=== PATIENT | female | born 1990 | race Caucasian/White ===

== ENCOUNTER 2020-09-26 04:40 | Inpatient (IN) | payer OTHER, SELFPAY ==
[2017-03-18 07:21] VITALS: BMI 32.6
[2020-09-26] VITALS (53 sets, daily range): BP systolic 89–142; BP diastolic 51–78; PULSE 48–139; RESP 16; TEMP 35.9–37.1; O2SAT 89–100; BMI 30.8
[2020-09-26 05:16] LABS: Absolute Lymphocyte Count 1.83 X10^3/uL (0.83-4.51); Absolute Neutrophil Count 6.6 X10^3/uL (2.0-7.7); Basophil# 0.03 X10^3/uL; Basophil% 0.3 % (0-1); Eosinophil# 0.13 X10^3/uL; Eosinophils% 1.4 % (0-5); Hematocrit 37.1 % (37-47); Hemoglobin 12.5 g/dL (12.0-15.0); Lymphocyte # 1.83 X10^3/ul (4.0); Mean Corp Hgb Conc 33.7 g/dL (32-36); Mean Corpuscular Hgb 32.4 pg (27.0-32.0); Mean Corpuscular Volume 96.1 fL (81-99); Mean Platelet Vol. 9.6 fl (6.2-12.0); Monocyte# 0.47 X10^3/uL; Monocyte% 5.1 % (0-10); NRBC Flagged by Analyzer 0 % (0-5); Neutrophil # 6.63 X10^3/uL (2.7-7.7); Neutrophil % 72.8 % (47-70); Platelet Count 229 K/mm3 (150-450); RBC Distribution Width CV 12.8 % (11.6-14.6); RBC Distribution Width SD 45.2 fl (35.1-43.9); Red Blood Count 3.86 M/mm3 (4.2-5.4); White Blood Count 9.1 K/mm3 (4.4-11.0)
[2020-09-26] MEDS: Lactated Ringers 500 ML 999 ML IV ×2 (05:18→06:13)
[2020-09-26] MEDS: Lactated Ringers 1,000 ML 200 ML IV ×2 (05:22→08:54)
[2020-09-26 05:44] LABS: ROM Internal Control Test YES-OK TO RESULT pt. (Internal QC)
[2020-09-26 05:45] LABS: ROM Patient Test POSITIVE (Negative)
[2020-09-26] MEDS: fentaNYL-bupivacaine (epidural) 100 ML BAG EPIDURAL (06:08)
[2020-09-26] MEDS: Ondansetron 4 MG/2 ML Vial IV (07:20)
--- NOTE | 2020-09-26 08:29 | PCM.HP.OB ---
- Problem List (1) Active labor at term Status: Acute (2) Positive GBS test Status: Acute (3) COVID-19 affecting in second trimester Status: Acute History Date of Admission: 03/18/17 Final KRISTIE: 09/25/20 Final KRISTIE Source: US <20 weeks Gestational age: 40 Weeks and 1 Days History of this : This is a 30 year-old, G [3], P [2001], at 40 weeks gestational age. Allergies No Known Allergies Allergy (Verified 09/26/20 04:54) Home Medications: Home Medications Vits [Prenatabs FA ] 1 tablet PO DAILY 03/18/17 Ranitidine [Zantac] 150 mg PO PRN PRN 03/18/17 Smoking Status: Never smoker Alcohol: None NST - FHR Rate Baby A Baseline: 130 Variability:: Moderate Accelerations:: 15 x 15 Decelerations:: None FHR Category:: Category I Uterine Activity:: every 3-4 minutes History Past Pregnancies: Past Pregnancies Delivery Date Name GA/ Weeks Outcome Route Wt Sex Labor Length Anesthesia Delivery Location Provider FOB Labs: Mom's Problem List Problem Status Onset Code Active labor at term Acute Positive GBS test Acute B95.1 COVID-19 affecting in second trimester Acute O98.512, U07.1 Mom's Labs & Results 09/26/20 09/26/20 09/26/20 05:05 05:05 05:28 WBC 9.1 RBC 3.86 L Hgb 12.5 Hct 37.1 MCV 96.1 MCH 32.4 H MCHC 33.7 RDW Std Deviation 45.2 H RDW Coeff of Kailyn 12.8 Plt Count 229 MPV 9.6 Immature Gran % (Auto) 0.400 Neut % (Auto) 72.8 H Lymph % (Auto) 20.0 Lares % (Auto) 5.1 Eos % (Auto) 1.4 Baso % (Auto) 0.3 Absolute Neuts (auto) 6.6 Absolute Lymphs (auto) 1.83 Nucleated RBC % 0 Vag Amniotic Fld Detect POSITIVE H Blood Type A POSITIVE Antibody Screen NEGATIVE Course Did the patient receive Yes care? Labs Blood Type: A RH: POSITIVE RPR/VDRL/Syphilis Nonreactive Rubella status Immune HbSAg Negative Date Done: 02/21/20 Chlamydia Negative Gonorrhea Negative HIV/AIDS Non-Reactive Group B Strep: Positive Current Obstetrical History Gestational Diabetes No Incompetent Cervix No Infertility No IUGR No Macrosomia No Hypertension/Pre-eclampsia No Placenta Previa/Abruption No PTL/PROM No Uterine anomaly No Oligohydramnios No Polyhydramnios No Multiple gestation No Past Medical History Asthma No Diabetes No Hypertension No Heart disease No Mitral valve prolapse No Neurologic/Seizure disorder/ No Migraines Kidney disease No Liver disease No Varicosities No Clotting disorders/Hx of DVT No Thyroid Dysfunction No Other medical diseases Yes: anemia Psychiatric disorders No Major trauma No Abnormal PAP smear No Sleep apnea No Mammogram in the last 2 years No Social History Marital Status: Alleged father Rick Dumont Hx Smoking No Smoking Status Never smoker Expected Delivery Method: Spontaneous Vaginal Review of Systems Constitutional: Denies: Chills, Fever, Weight Change HEENT: Denies: Head Aches, Sinus Congestion, Sinus Drainage Cardiovascular: Denies: Chest Pain, Palpitations Respiratory: Denies: Cough, Shortness of breath at rest, Sputum production Gastrointestinal: Denies: Abdominal Pain, Nausea, Vomiting Genitourinary: Denies: Dysuria Musculoskeletal: Denies: Joint Pain, Joint Tenderness Skin: Denies: Rash, Wounds Neurological: Denies: Numbness, Tingling, Focal weakness Psychiatric: Denies: Anxiety, Depression, Homicidal Ideations, Suicidal Ideations Hematologic/ Lymphatic: Denies: Easy Bruising, Easy Bleeding Physical Exam Vitals: Vital Signs Temp Pulse BP Pulse Ox 97.2 F L 57 L 91/54 L 100 09/26/20 07:16 09/26/20 08:11 09/26/20 08:11 09/26/20 07:08 General: Alert, Oriented x3, No apparent distress HEENT: Atraumatic, Normocephalic. Negative for: Thyromegaly, Lymphadenopathy Cardiovascular: Regular rate, Regular Rhythm, No murmurs Lungs: Clear to auscultation, Normal air movement, No rhonchi, No wheeze Abdomen: Bowel Sounds Present, Soft, Gravid Extremities:: No edema Neurological: Deep Tendon Reflexes 2+/4 and Symmetrical MEDICAL RADIATION THERAPIST: Normal external genitalia Estimated gestational size: Appropriate for gestational size Presentation: Cephalic Cervix Dilation (cm): 7 - per nursing exam. Epidural Station: -1 Effacement (%): 90 Assessment/Plan All Active Problems Active labor at term (Acute) Positive GBS test (Acute) COVID-19 affecting in second trimester (Acute) This is a 30 year-old, G [3], P [2001], at 40 weeks gestational age. A:Active labor at term Category 1 FHT GBS positive P: 1) Admit to labor and delivery 2) Routine labs 3) Penicillin G for GBS prophylaxis 4) Epidural for pain management 5) notified of patient in labor and collaborative physician
[2020-09-26] MEDS: Oxytocin 30 units/NS 500 ml 30 UNITS/500 ML IV.SOLN IV (09:38)
[2020-09-26] MEDS: Oxytocin 30 units/NS 500 ml 30 UNITS/500 ML IV.SOLN 334 UNITS IV (10:55)
--- NOTE | 2020-09-26 11:16 | PCM.OPRPT ---
Problem List (1) Active labor at term Status: Acute (2) Positive GBS test Status: Acute (3) COVID-19 affecting in second trimester Status: Acute (4) Vaginal delivery Status: Acute Vaginal Delivery Maternal Presentation: Active Labor Amniotic Membrane Rupture Type: Artificial Amniotic Fluid Description: Clear Final KRISTIE: 09/25/20 Final KRISTIE Source: US <20 weeks Gestational age: 40 Weeks and 1 Days Date of Procedure: 09/26/20 Pre-Operative Diagnosis: Active labor Post-Operative Diagnosis: Surgery/ Procedure Performed: Spontaneous Vaginal Delivery Type of Anesthesia: Epidural Description of Procedure: Progressed to complete with strong urge to push. of viable male over 1st degree vaginal laceration. APGARS 8,9. head delivered with body forthcoming. Loose cord around the neck x 1, delivered though. Infant placed on maternal abdomen, strong cry, mouth and nares suctioned for secretions. Pitocin started for active 3rd stage management. Placenta delivered with maternal effort, intact, 3 vessel cord via dago. Perineum inspected and revealed very small laceration inside introitus that was not hemostatic, 3.0 vicryl rapide with one figure eight stitch. Fundus firm and hemostasis achieved. Vaginal sweep completed by me, sponge and instrument count correct. Mom and baby stable, family bonding well. Planning to breastfeed. TRAVON Silverman 3 present and assisted with delivery. notified of patient delivery. Presentation: Vertex Placental Delivery Description: Spontaneous Placenta Disposition: [facility] Cord Vessel Description: 3 Vessels Cord Entanglement: Around neck x 1, loose Estimated Blood Loss: 100 ml Infant A gender: Male (1 minute): 8 (5 minute): 9 Episiotomy Description: None Laceration: 1st degree - vaginal laceration. 1 figure 8 stitch for hemostasis. Medications given after delivery: IV Pitocin Complications: None
[2020-09-26] MEDS: Acetaminophen 500 MG Tablet 1000 MG PO (12:00)
[2020-09-26] MEDS: 0.9% Saline Lock 10 ML Syringe IV (13:27)
[2020-09-26] MEDS: Ibuprofen 600 MG Tablet PO (19:36)
[2020-09-27 04:19] VITALS: BP 85/53; BP 89/62; PULSE 65; RESP 16; TEMP 36.4
[2020-09-27 04:36] LABS: Hematocrit 34.8 % (37-47); Hemoglobin 11.7 g/dL (12.0-15.0); Mean Corp Hgb Conc 33.6 g/dL (32-36); Mean Corpuscular Hgb 32.9 pg (27.0-32.0); Mean Corpuscular Volume 97.8 fL (81-99); Mean Platelet Vol. 9.6 fl (6.2-12.0); Platelet Count 200 K/mm3 (150-450); RBC Distribution Width CV 12.9 % (11.6-14.6); RBC Distribution Width SD 46.6 fl (35.1-43.9); Red Blood Count 3.56 M/mm3 (4.2-5.4); White Blood Count 9.4 K/mm3 (4.4-11.0)
--- NOTE | 2020-09-27 08:05 | PCM.PN.OB ---
Patient Problems: Active and Suspected Problems Active labor at term (Acute) Positive GBS test (Acute) COVID-19 affecting in second trimester (Acute) Vaginal delivery (Acute) Subjective: pt seen at bedside, doing well. pt reports good pain control. lochia mild. Breast feeding. - Physical Exam Vitals/I&O's: Vital Signs Temp Pulse Resp BP Pulse Ox 97.6 F L 65 16 85/53 L 96 09/27/20 04:19 09/27/20 04:19 09/27/20 04:19 09/27/20 04:19 09/26/20 23:10 Oxygen Delivery Method Room Air Weight: 84.096 kg Body Mass Index (BMI) 30.8 Intake and Output for Last 24 Hours 09/25/20 09/26/20 09/27/20 23:59 23:59 23:59 Intake Total 3767.57 / 3767.57 Output Total 1800 / 1800 Balance 1967.57 / 1967.57 General: Alert, Oriented x3 Abdomen: Soft, Non Tender, Non-Distended, - - fundus firm Extremities: No Calf Tenderness Laboratory Results 09/27/20 04:25: WBC 9.4, RBC 3.56 L, Hgb 11.7 L, Hct 34.8 L, MCV 97.8, MCH 32.9 H, MCHC 33.6, RDW Std Deviation 46.6 H, RDW Coeff of Kailyn 12.9, Plt Count 200, MPV 9.6 Current Medications Acetaminophen (Acetaminophen 500 Mg Tablet) 1,000 mg PO Q8H PRN PRN PRN Reason: Pain Score 1-10 Last Admin: 09/26/20 12:00 Dose: 1,000 mg Documented by: Bisacodyl (Bisacodyl 10 Mg Suppository) 10 mg RC UD PRN PRN Reason: If no BM Dibucaine (Dibucaine 30 Gm Tube) 1 applic TOPICAL TID PRN PRN; Protocol PRN Reason: Discomfort Hydrocortisone (Hydrocortisone 2.5% Crm) 1 applic TOPICAL TID PRN PRN; Protocol PRN Reason: Discomfort Ibuprofen (Ibuprofen 600 Mg Tablet) 600 mg PO Q6H PRN PRN PRN Reason: Pain Score 1-10 Last Admin: 09/26/20 19:36 Dose: 600 mg Documented by: Methylergonovine Maleate (Methylergonovine 0.2 Mg/Ml Ampul) 0.2 mg IM X1 PRN PRN Reason: Excess bleeding/uterine atony Ondansetron HCl (Ondansetron 4 Mg/2 Ml Vial) 4 mg IV Q4H PRN PRN PRN Reason: Nausea Senna/Docusate Sodium (Senna/Docusate Sodium 1 Tablet) 1 - 2 tablet PO DAILY PRN PRN PRN Reason: Constipation Simethicone (Simethicone 80 Mg Tablet) 80 mg PO PCHS PRN PRN Reason: Indigestion/Stomach pain Sodium Chloride (0.9% Saline Lock 10 Ml Syringe) 5 - 15 ml IV UD PRN PRN Reason: SALINE FLUSH Last Admin: 09/26/20 13:27 Dose: 10 ml Documented by: Medical Necessity - Tobacco Use Smoking Status: Never smoker Assessment/Plan All Active Problems Active labor at term (Acute) Positive GBS test (Acute) COVID-19 affecting in second trimester (Acute) Vaginal delivery (Acute) PPD#1, doing well routine care pain mgmt dc home
--- NOTE | 2020-09-27 08:07 | DCINST_ITS ---
Discharge Diet: No Restrictions Discharge Activity: Return to Normal Activity, May not drive while taking narcotic pain medications., May Shower May resume sexual activity in: 4-6 weeks Additional Activity Instructions:: Nothing in the vagina for 4-6 weeks. You may return to work/school in 6 weeks. Call your doctor if your incision/area has: Continuous Slow Oozing, Sudden Increased Bleeding, Increased Pain/ Swelling, Increased Redness, Foul Smelling Discharge Additional Instructions: If you experience any of the following, contact your healthcare provider. * Bleeding that soaks a pad every hour for 2 hours * Fever 100.4 or higher * Unrelieved incision or abdominal pain * Swelling, redness, discharge or bleeding from your incision or episiotomy site * Your incision begins to separate * Problems urinating (including inability to urinate or burning while urinating). * Visual changes * Severe headache * Flu-like symptoms * Pain or redness in one of both of your breasts * Pain, warmth, tenderness or swelling in your legs, especially the calf area * Frequent nausea and vomiting * Symptoms of depression or anxiety If you experience any of the following, call 911 or go to the nearest Emergency Room. * Chest pain * Problems breathing * Seizure activity * Partial or complete paralysis of a body part, slurred speech, weakness or drooping of the face, or a sudden inability to walk or hold your balance Allergies/Adverse Reactions: Allergies No Known Allergies Allergy (Verified 09/26/20 04:54) Medications to take at Discharge Vits [Prenatabs FA ] 1 tablet PO DAILY 03/18/17 Ranitidine [Zantac] 150 mg PO PRN PRN 03/18/17 Ibuprofen [Motrin] 600 mg PO Q6H PRN PRN #30 tablet 09/27/20 The following prescriptions were given: Ibuprofen [Motrin] 600 mg PO Q6H PRN PRN #30 tablet PRN Reason: Pain Score 1-10 Transmission Status: [facility] to [facility] When: Call to make an appointment with your doctor in1-2 weeks and again at 6 weeks. [phone] Primary Care Physician: Care Physician,No Primary [Primary Care Provider] - Test Results: Test results from this visit will be discussed in further detail at your follow- up appointment, if applicable.
--- NOTE | 2020-09-27 08:07 | PCM.DCVAG ---
Discharge Diet: No Restrictions Discharge Activity: Return to Normal Activity, May not drive while taking narcotic pain medications., May Shower May resume sexual activity in: 4-6 weeks Additional Activity Instructions:: Nothing in the vagina for 4-6 weeks. You may return to work/school in 6 weeks. Call your doctor if your incision/area has: Continuous Slow Oozing, Sudden Increased Bleeding, Increased Pain/ Swelling, Increased Redness, Foul Smelling Discharge Additional Instructions: If you experience any of the following, contact your healthcare provider. Bleeding that soaks a pad every hour for 2 hours Fever 100.4 or higher Unrelieved incision or abdominal pain Swelling, redness, discharge or bleeding from your incision or episiotomy site Your incision begins to separate Problems urinating (including inability to urinate or burning while urinating). Visual changes Severe headache Flu-like symptoms Pain or redness in one of both of your breasts Pain, warmth, tenderness or swelling in your legs, especially the calf area Frequent nausea and vomiting Symptoms of depression or anxiety If you experience any of the following, call 911 or go to the nearest Emergency Room. Chest pain Problems breathing Seizure activity Partial or complete paralysis of a body part, slurred speech, weakness or drooping of the face, or a sudden inability to walk or hold your balance Allergies/Adverse Reactions: Allergies No Known Allergies Allergy (Verified 09/26/20 04:54) Medications to take at Discharge Vits [Prenatabs FA ] 1 tablet PO DAILY 03/18/17 Ranitidine [Zantac] 150 mg PO PRN PRN 03/18/17 Ibuprofen [Motrin] 600 mg PO Q6H PRN PRN #30 tablet 09/27/20 The following prescriptions were given: Ibuprofen [Motrin] 600 mg PO Q6H PRN PRN #30 tablet PRN Reason: Pain Score 1-10 Transmission Status: [facility] When: Call to make an appointment with your doctor in1-2 weeks and again at 6 weeks. [phone] Primary Care Physician: Care Physician,No Primary [Primary Care Provider] - Test Results: Test results from this visit will be discussed in further detail at your follow-up appointment, if applicable.
[2020-09-27 08:08] VITALS: BP 94/70; PULSE 65; RESP 16; TEMP 36.1
[2020-09-27 12:52] VITALS: BP 96/72; PULSE 57; RESP 18; TEMP 36.5
== END 2020-09-27 13:05 | disposition home or self-care (01) | DRG 806 ==
PROVIDERS: Obstetrics & Gynecology; Admitting Provider Advanced Practice Midwife; Referring Provider Advanced Practice Midwife; Visit Provider Advanced Practice Midwife
DX: O98.82 Other maternal infectious and parasitic diseases complicating childbirth (principal); O71.4 Obstetric high vaginal laceration alone; Z37.0 Single live birth; B95.1 Streptococcus, group B, as the cause of diseases classified elsewhere; O69.81X0 Labor and delivery complicated by cord around neck, without compression, not applicable or unspecified; Z3A.40 40 weeks gestation of pregnancy
CPT/HCPCS: 59025; 59050; 84112; 85025; 85027; 86850; 86900; 86901; 99218; J7120; A4216; G0378; J2405